=== PATIENT | female | born 1955 | race Caucasian/White ===

== ENCOUNTER 2023-06-30 13:16 | Outpatient (CLI) | payer BC | END 2023-06-30 13:17 | disposition home or self-care (01) | LOC: CSHMAMMO 13:16 | PROVIDERS: ATTEND Family Medicine | DX: Z12.31 Encounter for screening mammogram for malignant neoplasm of breast (principal); Z13.820 Encounter for screening for osteoporosis; Z78.0 Asymptomatic menopausal state; Z80.3 Family history of malignant neoplasm of breast | CPT/HCPCS: 77063; 77067; 77080 ==